=== PATIENT | female | born 1990 | race African-American/Black ===

== ENCOUNTER 2025-07-30 04:55 | Observation (INO) | payer OTHER, SELFPAY ==
[2025-07-30] VITALS (22 sets, daily range): BP systolic 96–112; BP diastolic 62–73; PULSE 67–89; O2SAT 95–100
[2025-07-30] MEDS: FAMOTIDINE 20 MG/2 ML VIAL IV PUSH (05:50)
--- NOTE | 2025-07-30 06:01 | PC.NURSE ---
Pt presents via EMS for abdominal pain rated 9/10 as well as heartburn that started early this morning. Pt states that this is her 4th (all vaginal deliveries) , denies any complications this and plans on a vaginal delivery. Pt denies any LOF, Vaginal bleeding and states she has good movement. Abdomen palpates soft. Pt states she sees various providers at [facility]. Pt states she is supposed to be induced next Saturday but is unsure of which hospital.
--- NOTE | 2025-07-30 06:53 | PC.NURSE ---
[id number]--Report to Dr. Sun re: pt's presentation to OB via EMS, v.s, fhr tracing, CE, her hx and pt's heartburn relieved by pepcid IV. Order to DC home.
--- NOTE | 2025-08-25 09:12 | PM.OBTRLD ---
OB - Triage/Final Diagnosis Visit Information Comments/Additional reasons for admission: I have assessed the risk for this patient, Arley Rey, and determined that she would benefit from observation care. Final Diagnosis (1) Abdominal pain affecting : Code(s): O26.899 - Other specified related conditions, unspecified trimester; R10.9 - Unspecified abdominal pain Status: Acute
== END 2025-07-30 07:35 | disposition home or self-care (01) ==
PROVIDERS: Admitting Provider Obstetrics & Gynecology; Visit Provider Obstetrics & Gynecology
DX: O26.899 Other specified pregnancy related conditions, unspecified trimester (principal); R10.9 Unspecified abdominal pain
CPT/HCPCS: 96374; G0378; G0379